=== PATIENT | male | born 1940 | race Caucasian/White ===

== ENCOUNTER 2016-03-30 10:05 | Observation (INO) | payer OTHER ==
[~2016-03-30] VITALS: Ht 180.3 cm; Wt 72.6 kg
[~2016-03-30 10:05] MED LIST: AMOX-CLAV 875-1 EACH PO; CORDARONE200 MG PO; COREG12.5 M1 PO; ELIQUIS5 M1 PO; GUAIFENESIN ER600 MG PO; LANOXIN125 MCG PO; LASIX20 M1 PO; LOSARTAN POTASS50 M1 PO; PRAVASTATIN SOD20 M2 PO; SPIRIVA18 MCG INH; TRAMADOL HCL50 M1 PO; TYLENOL325 M1 PO
--- NOTE | 2016-03-30 10:14 | NUR ---
PT TO ED WITH C/O DARK RED STOOL SINCE SATURDAY, NO BM ON SATURDAY THEN SATURDAY IT'S DARK RED AGAIN. PT ON [facility]. HX AFIB, HEART FAILURE, COPD.
--- NOTE | 2016-03-30 10:26 | NUR ---
BLOODWORK,BLUE,LAV,BANEGAS,SST,AND PINK TOP TUBES SENT TO LAB.
[2016-03-30 10:32] LABS: ABSOLUTE BASOPHIL COUNT 0.1 /CUMM (0.0-0.2); ABSOLUTE EOSINOPHIL COUNT 0.2 /CUMM (0.0-0.7); ABSOLUTE GRANULOCYTE CT 3.9 /CUMM (1.4-6.5); ABSOLUTE LYMPH COUNT 0.8 /CUMM (1.2-3.4); ABSOLUTE MONOCYTE COUNT 0.6 /CUMM (0.10-0.60); BASOPHIL % 0.9 % (0.0-2.0); EOSINOPHIL % 4.4 % (0-5); GRANULOCYTE % 69.6 % (42.2-75.2); HEMATOCRIT 37.8 % (42-52); MEAN CORPUSCULAR HGB CONC 33.7 G/DL (33.0-37.0); MEAN CORPUSCULAR VOLUME 89.2 FL (80.0-94.0); MEAN PLATELET VOLUME 7.2 FL (7.4-10.4); PLATELET COUNT 235 /CUMM (130-400); RED BLOOD CELL CT 4.24 /CUMM (4.70-6.10); WHITE BLOOD CELL COUNT 5.7 /CUMM (4.8-10.8)
[2016-03-30 10:41] LABS: PT 22.7 SEC (9.4-12.5); PTT 35 SEC (25-37)
--- NOTE | 2016-03-30 10:48 | ED GI/GU/ABDOMINAL COMPLAINT ---
History of Present Illness General Chief Complaint: Abdominal Pain/Flank Pain Stated Complaint: rectal bleding Source: patient, old records Exam Limitations: no limitations Vital Signs & Intake/Output Vital Signs & Intake/Output Vital Signs Date Time Temp Pulse Resp B/P Pulse O2 O2 Flow FiO2 Ox Delivery Rate 03/30 1438 97.7 69 20 150/60 94 03/30 1015 96.1 68 20 124/63 97 Room Air Room Air Allergies Coded Allergies: NO KNOWN ALLERGIES (04/03/11) Triage Note: PT TO ED WITH C/O DARK RED STOOL SINCE SATURDAY, NO BM ON SATURDAY THEN SATURDAY IT'S DARK RED AGAIN. PT ON [facility]. Triage Nurses Notes Reviewed? yes HPI: Patient is a 75-year-old male presents complaining of bright red blood per rectum. Patient reports he had 1 episode on Saturday, no bowel movement Saturday, then on patient had 4 episodes of bright red blood per rectum. Patient reports that the first episode yesterday had stool mixed in then 3 episodes appeared to be bright red blood per rectum. No bowel movement today. Pain is 0 out of 10. Patient takes Eliquis twice a day for atrial fibrillation. Patient denies abdominal pain, chest pain, dyspnea, vomiting, melena. (GURINDER XAVIER,BEAU) Reconcile Medications Acetaminophen (Tylenol) 325 MG TABLET 650 MG PO Q8P PRN PAIN SCALE 1-3 (MILD) Amiodarone (Cordarone) 200 MG TABLET 200 MG PO DAILY anti-arrythmic Apixaban (Eliquis) 5 MG TABLET 5 MG PO BID anti-coagulation Budesonide/Formoterol Fumarate (Symbicort 80-4.5 Mcg Inhaler) 80 MCG-4.5 MCG/ ACTUATION HFA.AER.AD 2 PUF INH BID SOB Carvedilol (Coreg) 12.5 MG TABLET 12.5 MG PO BID hypertension Digoxin (Lanoxin) 125 MCG TABLET 0.125 MG PO EVERY OTHER DAY rate control Furosemide (Lasix) 20 MG TABLET 2 TAB PO SEE ADMIN CRITERIA CHF Take 20 lasix (1 tab) for 4 days Start alternating 2 tabs of 20 mg lasix and 1 tab of 20 mg lasix Guaifenesin (Mucinex) 600 MG TAB.ER.12H 1 TAB PO BID cough (Reported) Losartan Potassium 50 MG TABLET 50 MG PO DAILY hypertension Pravastatin Sodium 20 MG TABLET 20 MG PO SEE ADMIN CRITERIA Hyperlipidemia take one tab every other day Tiotropium [place] (Spiriva) 18 MCG CAP.W.DEV 1 PUF INH DAILY COPD (ELIAN WHITNEY DO) Past History Travel History Traveled to [place] past 21 day No Medical History Any Pertinent Medical History? 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 FATHER (cad). Hx Contributory? No (BEAU MARKHAM) Review of Systems Review of Systems Constitutional: Denies: chills, fever. EENTM: Reports: no symptoms. Respiratory: Denies: cough, short of breath. Cardiovascular: Denies: chest pain. GI: Reports: see HPI. Denies: abdominal pain. Genitourinary: Reports: no symptoms. Musculoskeletal: Reports: no symptoms. Skin: Reports: no symptoms. Neurological/Psychological: Reports: no symptoms. Hematologic/Endocrine: Reports: see HPI, bleeding. Immunologic/Allergic: Reports: no symptoms. (BEAU MARKHAM) Physical Exam Physical Exam General Appearance: well developed/nourished, alert, awake Head: atraumatic, normal appearance Eyes: Bilateral: normal appearance, PERRL, EOMI. Ears, Nose, Throat, Mouth: hearing grossly normal, moist mucous membrane Neck: normal inspection, supple, full range of motion Respiratory: normal breath sounds, chest non-tender, no respiratory distress, lungs clear Cardiovascular: regular rate/rhythm, murmur Peripheral Pulses: 2+ radial (L) Gastrointestinal: normal bowel sounds, soft, non-tender Rectal: small amount of bright red blood in the rectal vault. No external hemorrhoid or palpable internal hemorrhoid. Back: normal inspection, normal range of motion Extremities: normal range of motion Neurologic/Psych: no motor/sensory deficits, awake, alert, oriented x 3, normal gait, normal mood/affect Skin: intact, normal color, warm/dry Core Measures ACS in differential dx? No Severe Sepsis Present: No Septic Shock Present: No (GURINDER XAVIER,BEAU) Progress Differential Diagnosis: upper versus lower GI bleed Plan of Care: Orders Procedure Date/time Status Heart Healthy Diet 03/31 B Active CBC WITHOUT DIFFERENTIAL 03/31 599 Active BASIC ELECTROLYTES PLUS BUN&CR 03/31 599 Active Heart Healthy Diet 03/30 D Complete CBC WITHOUT DIFFERENTIAL 03/30 1999 Active Pathway - chart 03/30 1614 Active Code Status 03/30 1614 Active TYPE & SCREEN (NOT X-MATCH) 03/30 1530 Active Vital Signs 03/30 1451 Complete Teach/Educate 03/30 1451 Active Nutritional Intake, Monitor 03/30 1451 Active Isolation 03/30 1451 Active Intake & Output 03/30 1451 Complete Patient Care Conference 03/30 1451 Active Activity/Ambulation 03/30 1451 Active Intake & Output 03/30 1337 Active Patient Data 03/[address] in observation 03/30 1228 Active Vital Signs 03/30 1228 Active Code Status 03/30 1228 Complete MISTAKE 03/30 1059 Active DIGOXIN 03/30 1020 Complete PARTIAL THROMBOPLASTIN TIME 03/30 1018 Complete PROTHROMBIN TIME 03/30 1018 Complete COMPREHENSIVE METABOLIC PANEL 03/30 1018 Complete CBC WITHOUT DIFFERENTIAL 03/30 1018 Complete XRY-CHEST XRAY, PA AND LATERAL 03/30 UNK Active Lab Add-on Test 03/30 UNK Active VTE Mechanical Prophylaxis 03/30 UNK Active EKG 03/30 UNK Active Current Medications Sig/Ashley Start time Last Medication Dose Stop Time Status Admin Pravastatin Sodium 20 MG Q48H 04/01 1700 AC (Pravachol) Furosemide 20 MG Q48 04/01 1000 CAN (Lasix) Digoxin 0.125 MG Q48H 03/31 1700 AC (Lanoxin) Amiodarone HCl 200 MG DAILY 03/31 1000 AC (Cordarone) Furosemide 40 MG Q48 03/31 1000 AC (Lasix) Tiotropium [place] 1 PUF DAILY 03/31 1000 AC (Spiriva) Sodium Chloride 1,000 ML Q20H 03/31 0000 CAN (Normal Saline 0.9%) 021958 Budesonide/ 2 PUF BID 03/30 2199 AC Formoterol Fumarate (SYMBICORT) Carvedilol 12.5 MG BID 03/30 2199 AC (Coreg) Guaifenesin 600 MG BID 03/30 2199 AC (Mucinex) Acetaminophen 650 MG Q6P PRN 03/30 1614 AC (Tylenol) Pantoprazole Sodium 40 MG DAILY 03/30 1614 AC (Protonix) Laboratory Tests 03/30/16 1020: Anion Gap 9, Estimated GFR 42 L, BUN/Creatinine Ratio 21.3, Glucose 102 H, Calcium 8.9, Total Bilirubin 0.6, AST 47, ALT 63, Alkaline Phosphatase 67, Total Protein 6.9, Albumin 3.9, Globulin 3.0, Albumin/Globulin Ratio 1.3, PT 22.7 H, INR 2.18 H, APTT 35, CBC w Diff NO MAN DIFF REQ, RBC 4.24 L, MCV 89.2, MCH 30.0, RDW 14.0, MPV 7.2 L, Gran % 69.6, Lymphocytes % 14.9 L, Monocytes % 10.2 H, Eosinophils % 4.4, Basophils % 0.9, Absolute Granulocytes 3.9, Absolute Lymphocytes 0.8 L, Absolute Monocytes 0.6, Absolute Eosinophils 0.2, Absolute Basophils 0.1, PUBS MCHC 33.7, Digoxin 0.7 L 1140: Discussed with and seen by Dr. Whitney. Discussed with Dr Smith: Recommends placing patient in observation for serial CBCs and monitoring for any further or worsening bleeding. 1155: Results discussed with the patient and his . Patient resting comfortably. No change in clinical status. (BEAU MARKHAM) Initial ED EKG: none (BEAU MARKHAM) Departure Departure Time of Disposition: 1201 Disposition: STILL A PATIENT Condition: Stable Clinical Impression Primary Impression: Lower GI bleed Referrals: LAZARA BENAVIDEZ MD (PCP/Family) Departure Forms: Customer Survey General Discharge Information Observation Note Spoke With: LAZARA BENAVIDEZ MD Physician Advisor Notified: CONSTANZA SONI,LEILA Reina (do) Place Patient In: Non-ED OBS Care Area Rationale for Observation: My rational for observation is as follows: Bright red blood per rectum and patient is on Eliquis, making patient at high risk for further bleeding or worsening bleeding. Serial CBC, GI consultation, monitor for further or worsening bleeding. (GURINDER XAVIER,BEAU) Departure Prescriptions: Current Visit Scripts Furosemide (Lasix) 2 TAB PO SEE ADMIN CRITERIA 30 Days Take 20 lasix (1 tab) for 4 days Start alternating 2 tabs of 20 mg lasix and 1 tab of 20 mg lasix Budesonide/Formoterol Fumarate (Symbicort 80-4.5 Mcg Inhaler) 2 PUF INH BID #10.2 GM PA/BABY STROLLER RENTAL CLERK Co-Sign Statement Statement: ED Attending supervision documentation- [X] I saw and evaluated the patient. I have also reviewed all the pertinent lab results and diagnostic results. I agree with the findings and the plan of care as documented in the PA's/BABY STROLLER RENTAL CLERK's documentation. [] I have reviewed the ED Record and agree with the PA's/BABY STROLLER RENTAL CLERK's documentation. [] Additions or exceptions (if any) to the PAs/BABY STROLLER RENTAL CLERK's note and plan are summarized below: [] (ELIAN WHITNEY DO)
--- NOTE | 2016-03-30 11:45 | NUR ---
REPORT RECEIVED AND CARE ASSUMED. PT RESTING COMFORTABLY AT THIS TIME. DENIES ANY COMPLAINTS. AT BEDSIDE. AWAITING LAB RESULTS. PT IS A/O X 3. VSS. NO ACUTE DISTRESS NOTED. WILL CONTINUE TO MONITOR.
--- NOTE | 2016-03-30 12:15 | NUR ---
MORENITA FAIRCHILD AT BEDSIDE.
--- NOTE | 2016-03-30 13:17 | NUR ---
PT ADMITTED TO ROOM 234
[2016-03-30] MEDS ORDERED: SYMBICORT 80-10.2 GM INH (13:32)
[2016-03-30] MEDS ORDERED: LASIX20 M1 PO (13:32)
[2016-03-30] MEDS ORDERED: MUCINEX600 M1 PO (13:33)
--- NOTE | 2016-03-30 13:34 | NUR ---
REPORT GIVEN TO BRYAN ROPER ON 2N. PT TO BE TRANSFERRED TO ROOM 234.
--- NOTE | 2016-03-30 13:50 | NUR ---
20G PLACED IN LEFT WRIST. FLUSHED PER PROTOCOL. NO REDNESS, SWELLING, HEAT, OR PAIN AT SITE. PT. TOLERATED PROCEDURE WELL. DISTRIBUTION CALLED FOR TRANSPORT.
--- NOTE | 2016-03-30 13:58 | History & Physical ---
TRISTAN SONI,[facility] 03/30/16 3897: General Information and HPI MD Statement: I have seen and personally examined COLE ABBASI and documented this H&P. The patient is a 75 year old M who presented with a patient stated chief complaint of bright red blod per rectum. Source of Information: patient Exam Limitations: no limitations History of Present Illness: This is a 75-year-old very pleasant gentleman with a past medical history of a/ fib on anticoagulation (apixaban), status post pacemaker placement, recent ablation (2016), HTN, and carotid artery stenosis, remote history of ulcers (40 years ago?), presents to [place] ED for evaluation of bright red blood per rectum. Patient reports that on Saturday, he had one episode of BRBPR after a bowel movement. Patient did not have any bowel movement the following day and did not notice any bleeding. However on night, he experienced 3 episodes of BRPR which were followed defacation, he describes his BM on that day to be more like diarrhea. Patient reports also noticing some small blood clots during the episodes. Patient denies any abdominal or rectal pain during these episodes. Patient admits to a chronic history of constipation which he takes senna for relief. He does deny any history of hemorrhoids. Does not endorse any vomiting, hematemesis, nausea,denies history of hemorrhoids. Patient reports that his last colonoscopy was in 2004 and he states that there was no remarkable findings. Review of system is unremarkable for fever, chills, chest pain, palpitation, shortness of breath dizziness, or dysuria. Allergies/Medications Allergies: Coded Allergies: NO KNOWN ALLERGIES (04/03/11) Home Med list Acetaminophen (Tylenol) 325 MG TABLET 650 MG PO Q8P PRN PAIN SCALE 1-3 (MILD) Amiodarone (Cordarone) 200 MG TABLET 200 MG PO DAILY anti-arrythmic Apixaban (Eliquis) 5 MG TABLET 5 MG PO BID anti-coagulation Budesonide/Formoterol Fumarate (Symbicort 80-4.5 Mcg Inhaler) 80 MCG-4.5 MCG/ ACTUATION HFA.AER.AD 2 PUF INH BID SOB Carvedilol (Coreg) 12.5 MG TABLET 12.5 MG PO BID hypertension Digoxin (Lanoxin) 125 MCG TABLET 0.125 MG PO EVERY OTHER DAY rate control Furosemide (Lasix) 20 MG TABLET 2 TAB PO SEE ADMIN CRITERIA CHF Take 20 lasix (1 tab) for 4 days Start alternating 2 tabs of 20 mg lasix and 1 tab of 20 mg lasix Guaifenesin (Mucinex) 600 MG TAB.ER.12H 1 TAB PO BID cough (Reported) Losartan Potassium 50 MG TABLET 50 MG PO DAILY hypertension Pravastatin Sodium 20 MG TABLET 20 MG PO SEE ADMIN CRITERIA Hyperlipidemia take one tab every other day Tiotropium [place] (Spiriva) 18 MCG CAP.W.DEV 1 PUF INH DAILY COPD Past History Travel History Traveled to [place] past 21 day No Medical History Neurological: NONE EENT: NONE Cardiovascular: AFIB, DC, CARDIAC ABLATION '16 Respiratory: COPD, emphysema Gastrointestinal: ULCERS AAA Hepatic: NONE Renal: NONE Musculoskeletal: BACK PAIN, CHRONIC Psychiatric: NONE Endocrine: NONE Blood Disorders: anemia Cancer(s): NONE 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 FATHER (cad). Psychosocial History ETOH Use: denies use Illicit Drug Use: denies illicit drug use Functional Ability ADLs Independent: dressing, eating, toileting, bathing. Ambulation: independent IADLs Independent: shopping, housework, finances, food prep, telephone, transportation , medication admin. Review of Systems Review of Systems Constitutional: Denies: chills, diaphoresis, fever. EENTM: Denies: blurred vision, double vision, visual changes. Cardiovascular: Denies: chest pain, edema, orthopena, palpitations. Respiratory: Denies: hemoptysis, orthopnea, short of breath. GI: Reports: diarrhea, bloody stool, changes in stool. Denies: bloating, constipation, distention, vomiting. Genitourinary: Denies: dysuria, frequency, hematuria. Musculoskeletal: Denies: joint pain, joint swelling, muscle pain. Skin: Denies: dryness, erythema, jaundice. Neurological/Psychological: Denies: confusion, depressed, numbness, paresthesia. Hematologic/Endocrine: Reports: bleeding. Denies: bruising, polyuria, polydipsia. Immunologic/Allergic: Reports: no symptoms. All Other Systems: Reviewed and Negative Exam & Diagnostic Data Last 24 Hrs of Vital Signs/I&O Vital Signs Date Time Temp Pulse Resp B/P Pulse O2 O2 Flow FiO2 Ox Delivery Rate 03/30 1438 97.7 69 20 150/60 94 03/30 1015 96.1 68 20 124/63 97 Room Air Room Air Intake & Output 03/30 1600 03/30 0800 03/30 0000 Intake Total Output Total Balance Patient 72.575 kg Weight Physical Exam General Appearance Alert, Oriented X3, Cooperative Skin No Rashes, No Breakdown HEENT Atraumatic, EOMI, Mucous Membr. moist/pink Neck Supple, No JVD Lymphatic Cervical nl Cardiovascular Regular Rate, Normal S1, Normal S2 Lungs mild wheezing bilaterally Abdomen Normal Bowel Sounds, Soft, No Tenderness Neurological Normal Gait, Normal Speech, Strength at 5/5 X4 Ext, Sensation Intact Extremities No Edema Vascular Pulses Symmetrical Rectal deferred Assessment/Plan Assessment: This is a 75-year-old gentleman with a history of constipation, whose last colonoscopy was 10 years ago and who is on apixaban, presents with episodes of painless bright red blood per rectum. Assesment and Plan #Bright right blood per rectum Patient presenting with painless BRBPR preceded by defecation. Presentation is most likely lower GI bleeding with possible etiology of unknown rectal condition in the setting of history of constipation which could indicate possible hemorrhoidal bleeding. It is also possible that patient has diverticular bleeding in the setting of active anticoagulation use. AVM can also be a possible cause. 80% of lower GI bleed is transient and patient hasn't had any episodes today. The other possible etiology but less likely include upper GI lead with rapid transit. Pt will be benefit from a colonoscopy (outpatient, if no more bleed in this admission) as he has not had one since 2004. Plan Admit to general medicine floor for observation Will stop apixaban for today Will trend CBC at 8 PM, to maintain a goal of above 8. Monitor for any new acute rectal bleed. Will type and cross patient Keep patient on regular diet as recommended by GI (appreciated). Protonix for PPI #History of CHF Will continue digoxin and furosemide #History of A. fib Will hold off apixaban for now in the setting of reported lower GI bleed. Will defer to GI and cardio on when to restart. Continue amiodarone. As Ranked By This Provider Problem List: 1. Lower GI bleed Core Measures/Miscellaneous Acute Coronary Syndrome ACS Diagnosis: No Cerebrovascular Accident CVA/TIA Diagnosis: No Congestive Heart Failure CHF Diagnosis: No Venous Thromboembolism VTE Risk Factors: Age > 40 VTE Prophylaxis Ordered Inpt: Mechanical (ALPS/TEDS) No Mech VTE prophylaxis d/t: No contraindications No VTE Pharm Prophylaxis d/t: Active bleeding VTE Diagnosis: No VTE Type: NONE VTE Confirmed by (Test): NONE Severe Sepsis Severe Sepsis Present: No Septic Shock Septic Shock Present: No Miscellaneous Documentation Attending Case Discussed With: LAZARA BENAVIDEZ MD Primary Care Physician: LAZARA BENAVIDEZ MD 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 Patient reports that on Saturday, he had one episode of BRBPR after a bowel movement 25-year-old man with past medical history of A. 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 Patient reports having one bloody bowel movement on Saturday and 3 episodes of bloody diarrhea with clots on Saturday. Patient denies any episodes of nausea, vomiting, abdominal pain, hematuria, dizziness, chest pain, headaches. Patient does report of constipation, chronic cough and exertional dyspnea. Rectal Examination in ED showed streaks of blood in rectum. Vital signs on admission were stable, Orthostatics were negative Skin No Rashes, No Breakdown, No Significant Lesion HEENT Atraumatic, PERRLA, EOMI Neck Supple, No JVD, No thryomegaly Lymphatic Cervical nl Cardiovascular Regular Rate, Normal S1, Normal S2 Lungs mild expiratory wheezing, basal crackles on the left flank Abdomen Normal Bowel Sounds, Soft, No Tenderness, No Hepatospenomegaly, No Masses Neurological Normal Gait, Normal Speech, Strength at 5/5 X4 Ext, Sensation Intact Extremities No Clubbing, No Cyanosis, No Edema,Normal Pulses Notable labs, hemoglobin 12.7, at baseline, creatinine 1.5, baseline, dig level 0.6 Last colonoscopy was done in 2004 Assessment and plan #Lower GI bleed -The patient on observation -Possibly due to eliquis with diverticular problems versus hemorrhoid -stop eliquis for now -2 IV access -Type and crossmatch -Watch for active bleeding -GI is consulted already -Check CBC at 8 PM and 6 AM -IV PPI #History of A. fib -Continue on amiodarone and digoxin(every other day )and carvedilol -Get baseline EKG #CHF -Lasix 40 mg and 20 mg alternating #COPD, chronic cough, abnormal chest physical exam -Get chest x-ray (previous CXR 6 months ago showed consolidation in left lower lobe ) -Continue TRC -Continue Mucinex DVT prophylaxis Alps and eliquis , Tylenol for pain, full code , heart healthy diet EREMA SONI,[facility] 03/30/16 1902: Attending MD Review Statement Attending Statement Attending MD Statement: examined this patient, discuss w/resident/PA/SOIL CONSERVATIONIST, agreed w/resident/PA/SOIL CONSERVATIONIST, discussed with family, reviewed EMR data (avail) Attending Assessment/Plan: 75-year-old male with history of atrial fibrillation on apixaban, pacemaker placement, hypertension, carotid stenosis presenting with a few episodes of BRBPR. His last colonoscopy in 2004. Patient has been admitted for observation and in the event of active bleed he will need an inpatient colonoscopy if not we will discharge him off for 24 hours in arrange for outpatient colonoscopy. In the meantime he will hold apixaban and informed cardiology. Plan CBC every 12 hours Inform GI of active bleed Hold apixaban Observe for 24 hours Inform cardiology about holding apixaban May resume all other home meds Keep patient nothing by mouth after midnight Alps for DVT prophylaxis
[2016-03-30 14:38] VITALS: BP 150/60
--- NOTE | 2016-03-30 15:12 | NUR ---
14:30- PT ARRIVED TO FLOOR VIA WHEELCHAIR FROM ER. REPORT REC'D FROM JOCELYNN GODWIN RN. A/V/OX3. INDEPENDENT. HERE FOR OBSERVATION DUE TO DARK RED STOOL AT HOME. ORIENTED TO ROOM AND CALL LIGHT.
--- NOTE | 2016-03-30 15:59 | Cons- Gastroenterology ---
General Information and HPI Consulting Request Date of Consult: 03/30/16 Requested By: LAZARA BENAVIDEZ MD Reason for Consult: Rectal bleeding. Diarrhea. Source of Information: patient, old records Exam Limitations: no limitations History of Present Illness: Mr. Mota is a 75-year-old male on anticoagulation for atrial fibrillation who presented to [facility] today with complaints of bright blood per rectum. The patient notes that on Saturday he noted a scant amount of blood with his bowel movement which was otherwise normal in appearance. He did well on Saturday and then on night he had about 3 more episodes of blood which followed bowel movements which he described as loose. The bleeding was not associated with any significant abdominal pain and he has been without any abdominal pain with eating. He does have some constipation for which she uses senna as needed. He denies any rectal itching or rectal pain. He also denies ever having similar bleeding like this in the past. In the emergency room the patient was hemodynamically stable and his hemoglobin was 12 which was close to his baseline. He was admitted to the medical service for observation and has not had any further rectal bleeding or any bowel movements since arrival to the emergency room. Allergies/Medications Allergies: Coded Allergies: NO KNOWN ALLERGIES (04/03/11) Home Med List: Acetaminophen (Tylenol) 325 MG TABLET 650 MG PO Q8P PRN PAIN SCALE 1-3 (MILD) Amiodarone (Cordarone) 200 MG TABLET 200 MG PO DAILY anti-arrythmic Apixaban (Eliquis) 5 MG TABLET 5 MG PO BID anti-coagulation Budesonide/Formoterol Fumarate (Symbicort 80-4.5 Mcg Inhaler) 80 MCG-4.5 MCG/ ACTUATION HFA.AER.AD 2 PUF INH BID SOB Carvedilol (Coreg) 12.5 MG TABLET 12.5 MG PO BID hypertension Digoxin (Lanoxin) 125 MCG TABLET 0.125 MG PO EVERY OTHER DAY rate control Furosemide (Lasix) 20 MG TABLET 2 TAB PO SEE ADMIN CRITERIA CHF Take 20 lasix (1 tab) for 4 days Start alternating 2 tabs of 20 mg lasix and 1 tab of 20 mg lasix Guaifenesin (Mucinex) 600 MG TAB.ER.12H 1 TAB PO BID cough (Reported) Losartan Potassium 50 MG TABLET 50 MG PO DAILY hypertension Pravastatin Sodium 20 MG TABLET 20 MG PO SEE ADMIN CRITERIA Hyperlipidemia take one tab every other day Tiotropium Presto (Spiriva) 18 MCG CAP.W.DEV 1 PUF INH DAILY COPD Current Medications: Current Medications Sig/Ashley Start time Last Medication Dose Route Stop Time Status Admin Pravastatin Sodium 20 MG Q48H 04/01 1700 DCD PO Past History Travel History Traveled to [place] past 21 day No Medical History Blood Transfusion Hx: No Neurological: NONE EENT: NONE Cardiovascular: AFIB, [place], CARDIAC ABLATION Respiratory: COPD, emphysema Gastrointestinal: ULCERS AAA Hepatic: NONE Renal: NONE Musculoskeletal: BACK PAIN, CHRONIC Psychiatric: NONE Endocrine: NONE Blood Disorders: anemia Cancer(s): NONE 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 FATHER (cad). Psychosocial History Smoking Status: Former Smoker ETOH Use: denies use Illicit Drug Use: denies illicit drug use Functional Ability ADLs Independent: dressing, eating, toileting, bathing. Ambulation: independent IADLs Independent: shopping, housework, finances, food prep, telephone, transportation , medication admin. Review of Systems Review of Systems Constitutional: Denies: no symptoms. EENTM: Denies: no symptoms. Cardiovascular: Denies: no symptoms. Respiratory: Denies: no symptoms. GI: Reports: see HPI. Genitourinary: Denies: no symptoms. Musculoskeletal: Denies: no symptoms. Skin: Denies: no symptoms. Neurological/Psychological: Denies: no symptoms. Hematologic/Endocrine: Denies: no symptoms. Immunologic/Allergic: Denies: no symptoms. All Other Systems: Reviewed and Negative Exam & Diagnostic Data Vital Signs and I&O Vital Signs Date Time Temp Pulse Resp B/P Pulse O2 O2 Flow FiO2 Ox Delivery Rate 03/30 1438 97.7 69 20 150/60 94 03/30 1015 96.1 68 20 124/63 97 Room Air Room Air Intake & Output 03/30 1600 03/30 0400 03/29 1600 03/29 0400 03/28 1600 03/28 0400 Intake Total Output Total Balance Patient 160 lb Weight Physical Exam General Appearance: well developed/nourished, no apparent distress, alert, comfortable Head: atraumatic, normal appearance Eyes: Bilateral: normal appearance. Ears, Nose, Throat: normal pharynx, normal ENT inspection Neck: normal inspection, supple, full range of motion Respiratory: normal breath sounds, chest non-tender, no respiratory distress Cardiovascular: irregularly irregular Gastrointestinal: normal bowel sounds, soft, non-tender, no organomegaly Rectal: deferred Back: normal inspection, normal range of motion Extremities: normal inspection, no edema Neurologic/Psych: no motor/sensory deficits, awake, alert, oriented x 3 Results Pertinent Lab Results: Laboratory Tests 03/30 1020 Chemistry Sodium (137 - 145 mmol/L) 141 Potassium (3.5 - 5.1 mmol/L) 4.7 Chloride (98 - 107 mmol/L) 103 Carbon Dioxide (22 - 30 mmol/L) 29 Anion Gap (5 - 16) 9 BUN (9 - 20 mg/dL) 34 H Creatinine (0.7 - 1.2 mg/dL) 1.6 H Estimated GFR (>60 ml/min) 42 L BUN/Creatinine Ratio (7 - 25 %) 21.3 Glucose (65 - 99 mg/dL) 102 H Calcium (8.4 - 10.2 mg/dL) 8.9 Total Bilirubin (0.2 - 1.3 mg/dL) 0.6 AST (17 - 59 U/L) 47 ALT (21 - 72 U/L) 63 Alkaline Phosphatase (< 127 U/L) 67 Total Protein (6.3 - 8.2 g/dL) 6.9 Albumin (3.5 - 5.0 g/dL) 3.9 Globulin (1.9 - 4.2 gm/dL) 3.0 Albumin/Globulin Ratio (1.1 - 2.2 %) 1.3 Coagulation PT (9.4 - 12.5 SEC) 22.7 H INR (0.90 - 1.17) 2.18 H APTT (25 - 37 SEC) 35 Hematology CBC w Diff NO MAN DIFF REQ WBC (4.8 - 10.8 /CUMM) 5.7 RBC (4.70 - 6.10 /CUMM) 4.24 L Hgb (14.0 - 18.0 G/DL) 12.7 L Hct (42 - 52 %) 37.8 L MCV (80.0 - 94.0 FL) 89.2 MCH (27.0 - 31.0 PG) 30.0 RDW (11.5 - 14.5 %) 14.0 Plt Count (130 - 400 /CUMM) 235 MPV (7.4 - 10.4 FL) 7.2 L Gran % (42.2 - 75.2 %) 69.6 Lymphocytes % (20.5 - 51.1 %) 14.9 L Monocytes % (1.7 - 9.3 %) 10.2 H Eosinophils % (0 - 5 %) 4.4 Basophils % (0.0 - 2.0 %) 0.9 Absolute Granulocytes (1.4 - 6.5 /CUMM) 3.9 Absolute Lymphocytes (1.2 - 3.4 /CUMM) 0.8 L Absolute Monocytes (0.10 - 0.60 /CUMM) 0.6 Absolute Eosinophils (0.0 - 0.7 /CUMM) 0.2 Absolute Basophils (0.0 - 0.2 /CUMM) 0.1 PUBS MCHC (33.0 - 37.0 G/DL) 33.7 Toxicology Digoxin (0.8 - 2.0 ng/mL) Pending Assessment/Plan Assessment/Recommendations: Assessment: Mr. Mota is a 75-year-old male on Eliquis for atrial fibrillation who presents with several episodes of bright blood per rectum that started on Saturday which I feel is most likely secondary to a hemorrhoidal bleed or a self limited diverticular bleed considering his lack of pain and relatively stable hemoglobin. While he should ultimately have a colonoscopy to further evaluate the etiology of the bleeding as he has not had one in over 10 years as he is currently stable and is without evidence of ongoing GI blood loss this isn't urgent. As he has not had any further bleeding since last night and his hemoglobin is stable I am hopeful that the bleeding will stop with temporary cessation of the Eliquis and he will be able to be discharged home over the weekend so that he can follow up as an outpatient for a colonoscopy. Recommendations: 1. High-fiber diet as tolerated. 2. Follow daily CBCs and transfuse as needed to keep his hemoglobin 8 or as per cardiology recommendations. 3. Maintain 2 large-bore IVs at all times. 4. Notify GI for signs of hemodynamically significant bleeding. 5. Hold Eliquis and nsaids for now. 6. If he has any diarrhea it should be sent for c. diff, o and p and culture 7. If pt remains stable without any further bleeding will likely then recommend that he be discharged home to follow up as an outpatient for a repeat colonoscopy. I will continue to follow this patient and make further recommendations based on his clinical course and results of repeat blood work. Problem List: 1. Lower GI bleed Copies To: [facility]. [facility] Consult Acknowledgment - Thank you for your consult request.
--- NOTE | 2016-03-30 18:59 | Admission Certification ---
Admission Certification Certification Statement - As attending physician, I certify that at the time of - admission, based on clinical presentation, severity of - symptoms, need for further diagnostic testing and - therapeutic interventions, and risk of adverse outcomes - without in-hospital treatment, in my clinical assessment, - this patient requires an acute hospital stay for a minimum - of two nights or longer. I have also considered psychsocial - factors such as support system, advanced age, financial - issues, cognitive issues, and failed out-patient treatments, - past re-admission history, safety of patient, and lack of - compliance as applicable. Specific rationale supporting this admission is: GI bleed
--- NOTE | 2016-03-30 19:11 | RADIOLOGY REPORT ---
EXAMINATION: XR CHEST CLINICAL INFORMATION: Abnormal chest sounds at left lung base. COMPARISON: Chest x-ray 09/04/2015. CT of chest 09/06/2015. TECHNIQUE: 2 views of the chest were obtained. FINDINGS: No acute abnormality. The lungs are clear. There is no pulmonary vascular congestion and no pleural effusion. Heart size is top normal. No change position of the pacemaker leads since prior exam. IMPRESSION: No acute abnormality of the chest.
[2016-03-30 21:45] LABS: ABSOLUTE BASOPHIL COUNT 0 /CUMM (0.0-0.2); ABSOLUTE EOSINOPHIL COUNT 0.3 /CUMM (0.0-0.7); ABSOLUTE GRANULOCYTE CT 4.4 /CUMM (1.4-6.5); ABSOLUTE LYMPH COUNT 1.2 /CUMM (1.2-3.4); ABSOLUTE MONOCYTE COUNT 0.7 /CUMM (0.10-0.60); BASOPHIL % 0.7 % (0.0-2.0); EOSINOPHIL % 3.9 % (0-5); GRANULOCYTE % 67.2 % (42.2-75.2); HEMATOCRIT 38.2 % (42-52); MEAN CORPUSCULAR HGB 29.9 PG (27.0-31.0); MEAN CORPUSCULAR HGB CONC 33.3 G/DL (33.0-37.0); MEAN CORPUSCULAR VOLUME 89.7 FL (80.0-94.0); MEAN PLATELET VOLUME 8.1 FL (7.4-10.4); PLATELET COUNT 249 /CUMM (130-400); RBC DISTRIBUTION WIDTH 14.5 % (11.5-14.5); RED BLOOD CELL CT 4.25 /CUMM (4.70-6.10); WHITE BLOOD CELL COUNT 6.5 /CUMM (4.8-10.8)
[2016-03-30 22:07] VITALS: BP 112/68
[2016-03-31 06:27] VITALS: BP 110/54
--- NOTE | 2016-03-31 07:28 | PN- Housestaff ---
TRISTAN SONI,DA 03/31/16 4725: Subjective Follow-up For: lower GI bleed Subjective: Pt was seen and examined at bedside. He is eager for discharge. He does not report any o/n episode of BRBPR or melena. No acute o/n event reported by o/n staff. Review of Systems Constitutional: Reports: no symptoms. Objective Physical Exam General Appearance: Alert, Oriented X3, Cooperative Other Physical Findings: Skin No Rashes, No Breakdown HEENT Atraumatic, EOMI, Mucous Membr. moist/pink Neck Supple, No JVD Lymphatic Cervical nl Cardiovascular Regular Rate, Normal S1, Normal S2 Lungs mild wheezing bilaterally Abdomen Normal Bowel Sounds, Soft, No Tenderness Neurological Normal Gait, Normal Speech, Strength at 5/5 X4 Ext, Sensation Intact Extremities No Edema Vascular Pulses Symmetrical Rectal deferred Assessment/Plan Assessment: Assessment: This is a 75-year-old gentleman with a history of constipation, whose last colonoscopy was 10 years ago and who is on apixaban, presents with episodes of painless bright red blood per rectum. Assesment and Plan #Bright right blood per rectum Patient presenting with painless BRBPR preceded by defecation. Presentation is most likely lower GI bleeding with possible etiology of unknown rectal condition in the setting of history of constipation which could indicate possible hemorrhoidal bleeding. It is also possible that patient has diverticular bleeding in the setting of active anticoagulation use. AVM can also be a possible cause. 80% of lower GI bleed is transient and patient hasn't had any episodes today. The other possible etiology but less likely include upper GI lead with rapid transit. Pt will be benefit from a colonoscopy (outpatient, if no more bleed in this admission) as he has not had one since 2004. Plan Pt is stable with no reported episodes of BRBPR or melena, H&H and hemodynamically stable. Pt will be discharged today. #History of CHF Will continue digoxin and furosemide #History of A. fib Will hold off apixaban for now in the setting of reported lower GI bleed. Will defer to GI and cardio on when to restart. Continue amiodarone. Problem List: 1. Lower GI bleed Pain Ratin Pain Location: none Pain Goal: Pain 4 or less Pain Plan: per pain pathway Tomorrow's Labs & Rationales: none-discharge CARLIE TONY MD 03/31/16 1330: Objective Last 24 Hrs of Vital Signs/I&O Vital Signs Date Time Temp Pulse Resp B/P Pulse O2 O2 Flow FiO2 Ox Delivery Rate 03/31 0914 68 122/52 03/31 0913 68 122/52 03/31 0627 97.9 70 20 110/54 96 Room Air 03/30 2207 97.8 69 20 112/68 95 Room Air 03/30 2142 112/68 03/30 1438 97.7 69 20 150/60 94 Intake & Output 03/31 1600 03/31 0800 03/31 0000 Intake Total 120 Output Total Balance 120 Intake, Oral 120 Attending MD Review Statement Attending Statement Attending MD Statement: examined this patient, discuss w/resident/PA/TAILINGS WORKER, agreed w/resident/PA/TAILINGS WORKER, discussed with family, reviewed EMR data (avail), discussed with nursing, reviewed images, amended to note Attending Assessment/Plan: Mr. Mota has no complaints today. He has been observed and has had no further episodes of rectal bleeding. His vital signs and exam are benign. He is stable to be discharged. Follow-up with GI has been arranged. His CMR has been reviewed and signed. He will restart his anticoagulant on April 01. He is to arrange follow-up with Dr. Cormier.
[2016-03-31 08:23] LABS: ABSOLUTE BASOPHIL COUNT 0.1 /CUMM (0.0-0.2); ABSOLUTE EOSINOPHIL COUNT 0.3 /CUMM (0.0-0.7); ABSOLUTE GRANULOCYTE CT 3.6 /CUMM (1.4-6.5); ABSOLUTE LYMPH COUNT 0.9 /CUMM (1.2-3.4); ABSOLUTE MONOCYTE COUNT 0.5 /CUMM (0.10-0.60); EOSINOPHIL % 5.1 % (0-5); GRANULOCYTE % 68.5 % (42.2-75.2); HEMATOCRIT 34.7 % (42-52); MEAN CORPUSCULAR HGB 30.2 PG (27.0-31.0); MEAN CORPUSCULAR VOLUME 88.7 FL (80.0-94.0); MEAN PLATELET VOLUME 8.1 FL (7.4-10.4); PLATELET COUNT 204 /CUMM (130-400); RBC DISTRIBUTION WIDTH 14.5 % (11.5-14.5); RED BLOOD CELL CT 3.92 /CUMM (4.70-6.10); WHITE BLOOD CELL COUNT 5.3 /CUMM (4.8-10.8)
[2016-03-31 09:14] VITALS: BP 122/52
--- NOTE | 2016-03-31 09:36 | Patient Discharge Instructions ---
Discharge Instructions General Discharge Information You were seen/treated for: rectal bleeding Special Instructions: Please restart taking your Elliquis (blood thinner)tomorrow (04/01/16) Please follow up with your primary care physician in 1 week Please follow up with Dr Smith (Stomach doctor) within 1 week for evaluation and colonoscopy Please seek medical attention if you develop episodes of blood in your stool. Diet Continue normal diet: Yes (high fiber) Activity Full Activity/No Limits: Yes Acute Coronary Syndrome Inclusion Criteria At DC or during hospital stay patient has or had the following: ACS DIAGNOSIS No Discharge Core Measures Meds if any: Prescribed or Continued at Discharge Meds if any: NOT Prescribed or Continued at Discharge Congestive Heart Failure Inclusion Criteria At DC or during hospital stay patient has or had the following: CHF DIAGNOSIS No Discharge Core Measures Meds if any: Prescribed or Continued at Discharge Meds if any: NOT Prescribed or Continued at Discharge Cerebrovascular accident Inclusion Criteria At DC or during hospital stay patient has or had the following: CVA/TIA Diagnosis No Discharge Core Measures Meds if any: Prescribed or Continued at Discharge Meds if any: NOT Prescribed or Continued at Discharge Venous thromboembolism Inclusion Criteria VTE Diagnosis No VTE Type NONE VTE Confirmed by (Test) NONE Discharge Core Measures - Per Current guidelines, there needs to be overlap - treatment for the first 5 days of Warfarin therapy. - If discharged on Warfarin prior to 5 days of - overlap therapy, the patient will need to be - assessed for post discharge needs including - *Post discharge parental anticoagulation - *Warfarin and/or parental anticoagulation education - *Follow up date to check INR post discharge At least 5 days overlap therapy as Inpatient No Meds if any: Prescribed or Continued at Discharge Note: Overlap Therapy is Warfarin and Anticoagulant Meds if any: NOT Prescribed or Continued at Discharge
== END 2016-03-31 14:06 ==
LOC: ENRESERVDT → ENRESERVTM → ERH 10:05 → ERHI 12:28 → ENPENDDIS 12:28 → ERHI 12:28 → 2NA 14:16
PROVIDERS: Emergency Medicine; Internal Medicine; ADMIT Internal Medicine
DX: K92.2 Gastrointestinal hemorrhage, unspecified (principal); I48.91 Unspecified atrial fibrillation; Z79.01 Long term (current) use of anticoagulants; I25.2 Old myocardial infarction; I50.9 Heart failure, unspecified; I10 Essential (primary) hypertension; Z95.0 Presence of cardiac pacemaker; K59.00 Constipation, unspecified; J44.9 Chronic obstructive pulmonary disease, unspecified
CPT/HCPCS: 6030; 82436; 93005; 93010; G0378; J3490

== ENCOUNTER 2016-07-26 10:45 | Emergency (ER) | payer OTHER ==
[~2016-07-26] VITALS: Ht 180.3 cm; Wt 72.6 kg
[~2016-07-26 10:45] MED LIST changes: +MUCINEX600 M1 PO; +SYMBICORT 80-10.2 GM INH
[2016-07-26 11:10] LABS: ABSOLUTE BASOPHIL COUNT 0 /CUMM (0.0-0.2); ABSOLUTE EOSINOPHIL COUNT 0 /CUMM (0.0-0.7); ABSOLUTE GRANULOCYTE CT 4.4 /CUMM (1.4-6.5); ABSOLUTE LYMPH COUNT 0.4 /CUMM (1.2-3.4); ABSOLUTE MONOCYTE COUNT 0.5 /CUMM (0.10-0.60); BASOPHIL % 0.1 % (0.0-2.0); EOSINOPHIL % 0.1 % (0-5); HEMATOCRIT 36.3 % (42-52); MEAN CORPUSCULAR HGB 28.7 PG (27.0-31.0); MEAN CORPUSCULAR HGB CONC 33.4 G/DL (33.0-37.0); MEAN PLATELET VOLUME 7.6 FL (7.4-10.4); PLATELET COUNT 149 /CUMM (130-400); RBC DISTRIBUTION WIDTH 16.4 % (11.5-14.5); RED BLOOD CELL CT 4.22 /CUMM (4.70-6.10); WHITE BLOOD CELL COUNT 5.3 /CUMM (4.8-10.8)
--- NOTE | 2016-07-26 11:12 | ED HEAD/FACIAL INJ COMPLAINT ---
See Addendum History of Present Illness General Chief Complaint: Fall Stated Complaint: FALL HIT HEAD Source: patient Exam Limitations: no limitations Vital Signs & Intake/Output Vital Signs & Intake/Output Vital Signs Date Time Temp Pulse Resp B/P B/P Pulse O2 O2 Flow FiO2 Mean Ox Delivery Rate 07/26 1545 98.0 71 16 112/58 98 Room Air 07/26 1431 98.2 69 16 97/54 99 Room Air 07/26 1144 71 16 108/52 98 Room Air 07/26 1111 93 Nasal 2.0L Cannula 07/26 1107 70 15 98/42 89 Room Air Room Air 07/26 1047 96.2 70 16 78/37 92 Room Air Allergies Coded Allergies: NO KNOWN ALLERGIES (04/03/11) Reconcile Medications Amiodarone HCl 200 MG TABLET 1 TAB PO DAILY HEART (Reported) Apixaban (Eliquis) 5 MG TABLET 5 MG PO BID anti-coagulation Budesonide/Formoterol Fumarate (Symbicort 80-4.5 Mcg Inhaler) 80 MCG-4.5 MCG/ ACTUATION HFA.AER.AD 2 PUF INH BID SOB Carvedilol (Coreg) 12.5 MG TABLET 12.5 MG PO BID hypertension Digoxin 125 MCG TABLET 1 TAB PO MoWeFr HEART (Reported) Furosemide 40 MG TABLET 1 TAB PO DAILY WATER PILL (Reported) Losartan Potassium 50 MG TABLET 50 MG PO DAILY hypertension Magnesium Oxide 400 MG TABLET 1 TAB PO DAILY SUPPLEMENT (Reported) Pravastatin Sodium (Pravachol) 20 MG TABLET 1 TAB PO TuThSa CHOLESTEROL ( Reported) Tiotropium [place] (Spiriva) 18 MCG CAP.W.DEV 1 PUF INH DAILY COPD Triage Note: 76 Y/O MALE C/O FALL THIS AM; STATES HE WAS IN HOUSE AND "MY LEGS JUST GAVE OUT". STRUCK HEAD ON DINING ROOM WALL. PT UNSURE IF THERE WAS LOC. TAKES ELIQUIS DAILY. PT HOLDING ICE TO FOREHEAD WITH LARGE HEMATOMA NOTED. DRIED BLOOD NOTED TO BRIDGE OF NOSE. B/P /37 IN TRIAGE. Triage Nurses Notes Reviewed? yes Onset: Just prior to arrival Severity: severe Location: FOREHEAD Method of Injury: fall Loss of Consciousness: unsure HPI: Patient presents for evaluation of injury sustained status post fall just prior to arrival. Patient states that while at home his legs gave out causing him to fall into the corner of a wall. He states he "went down" and then woke up on the floor. He is not sure if he lost consciousness. After awakening on the floor he states he got up and sat in a chair. Since then he has had right forehead swelling and pain with bleeding from a small cut. In addition he states his legs "feel like rubber". He denies headache, visual changes, vomiting, neck pain or back pain. He takes Eliquis for history of atrial fibrillation. Past History Travel History Traveled to [place] past 21 day No Medical History Any Pertinent Medical History? 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 FATHER (cad). Hx Contributory? No Review of Systems Review of Systems Constitutional: Reports: no symptoms. EENTM: Reports: no symptoms. Respiratory: Reports: no symptoms. Cardiovascular: Reports: no symptoms. GI: Reports: no symptoms. Genitourinary: Reports: no symptoms. Musculoskeletal: Reports: see HPI. Skin: Reports: no symptoms. Neurological/Psychological: Reports: no symptoms. Hematologic/Endocrine: Reports: no symptoms. Immunologic/Allergic: Reports: no symptoms. All Other Systems: Reviewed and Negative Physical Exam Physical Exam General Appearance: SEE BELOW Cranial Nerves: SEE BELOW Comments: Gen.: Well-nourished, well-developed, no acute respiratory distress. Head: Normocephalic, right forehead contusion with abrasion and slight bleeding. Eyes: Normal inspection bilaterally, ady, EOMI Ears: Normal inspection bilaterally, TMs normal bilaterally, no morales sign Nose: Small abrasion of the nasal bridge, nontender, no epistaxis Throat/mouth : Moist mucosa Neck: Supple, full range of motion, no goiter, nontender Heart: Regular rate and rhythm, no murmurs rubs or gallops Lungs: Clear to auscultation bilaterally with normal air entry Chest: Nontender Back: Normal range of motion, nontender Abdomen: Soft, nontender, nondistended, normal bowel sounds Pelvis: Stable and nontender Extremities: Normal range of motion grossly, no tenderness, no cyanosis clubbing or edema, extremities reveal normal muscle strength and deep tendon reflexes. Neurologic: Cranial nerves 2 through 12 intact, speech is clear Skin: warm and dry and without ecchymoses or soft tissue swelling or erythema Psychiatric: Calm, cooperative, no apparent delusions or hallucinations Progress Differential Diagnosis: facial fracture, orbit fracture, skull fracture Plan of Care: Orders Procedure Date/time Status TROPONIN LEVEL 07/26 1537 Complete TROPONIN LEVEL 07/26 1101 Complete COMPREHENSIVE METABOLIC PANEL 07/26 1101 Complete CBC WITHOUT DIFFERENTIAL 07/26 1101 Complete EKG 07/26 1055 Active PARTIAL THROMBOPLASTIN TIME 07/26 1049 Complete PROTHROMBIN TIME 07/26 1049 Complete Laboratory Tests 07/26/16 1543: Troponin I 0.07 07/26/16 1102: Anion Gap 11, Estimated GFR 35 L, BUN/Creatinine Ratio 16.3, Glucose 100 H, Calcium 7.8 L, Total Bilirubin 0.7, AST 91 H, ALT 104 H, Alkaline Phosphatase 59, Troponin I 0.11 *H, Total Protein 6.1 L, Albumin 3.3 L, Globulin 2.8, Albumin/Globulin Ratio 1.2, PT 30.1 H, INR 2.90 H, APTT 35, CBC w Diff NO MAN DIFF REQ, RBC 4.22 L, MCV 86.0, MCH 28.7, RDW 16.4 H, MPV 7.6, Gran % 83.5 H, Lymphocytes % 7.2 L, Monocytes % 9.1, Eosinophils % 0.1, Basophils % 0.1, Absolute Granulocytes 4.4, Absolute Lymphocytes 0.4 L, Absolute Monocytes 0.5, Absolute Eosinophils 0, Absolute Basophils 0, PUBS MCHC 33.4 Comments: Patient consented for transport to [facility] for CAT scan. 07/26/2016 3:45:39 PM I have updated Carmine on his CAT scan report. Large frontal hematoma but no acute bony abnormalities. Cervical spine shows degenerative changes. Patient's elevated troponin is of unclear significance. He did have a low blood pressure during his emergency department stay at [facility] and here requiring IV fluids. His blood pressures currently normal. He denies ever having chest pain or heart palpitations. Repeat troponin is pending and I will contact Dr. Alexandre regarding this and any recommended adjustments for his blood pressure medication. 07/26/2016 6:23:45 PM patient's case discussed with Dr Lee who feels the patient is stable for discharge. Patient describes a fall secondary to leg weakness. His medical evaluation is unremarkable. I do not feel his elevated troponin reflects an acute coronary syndrome or myocardial infarction. Chest pain that any point that he can recall and he denies heart palpitations as well. Fortunately his traumatic injuries are relatively minor. I feel he is stable for discharge. Departure Departure Disposition: HOME OR SELF CARE Condition: Stable Clinical Impression Primary Impression: Forehead contusion Qualifiers: Encounter type: initial encounter Qualified Code: S00.83XA - Contusion of other part of head, initial encounter Secondary Impressions: Neck strain Qualifiers: Encounter type: initial encounter Qualified Code: S16.1XXA - Strain of muscle, fascia and tendon at neck level, initial encounter Referrals: LAZARA BENAVIDEZ MD (PCP/Family) Additional Instructions: Rest, no exertion or heavy lifting. Cool compresses to your right forehead to reduce swelling. Follow-up with your primary care physician within the next 24- 48 hours for reevaluation. Return if any concerns or sudden worsening. Please note that there might be incidental findings in your evaluation that are unrelated to the current emergency department visit. Please notify your primary care doctor about this emergency department visit in order to obtain and review all of the testing performed so that these incidental findings can be monitored as needed. If you had an x-ray performed, please understand that some fractures may not be seen on the initial set of x-rays. If your symptoms persist you might need a repeat set of x-rays to check for such a fracture. If you had a laceration evaluated, please understand that foreign bodies such as glass or wood may not be visible to the naked eye or on plain x-rays. If the wound becomes red, swollen, increasingly more painful or if there is any drainage from the wound, please have it reevaluated by a physician for the possibility of a retained foreign body. Thank you for choosing the [facility] Emergency Department for your care. It was a pleasure to serve you today. Pacheco Celeste M.D. [facility] Departure Forms: Customer Survey General Discharge Information
[2016-07-26] MEDS ORDERED: CARVEDILOL12.5 M1 PO (11:14)
[2016-07-26] MEDS ORDERED: DIGOXIN125 MCG PO (11:16)
[2016-07-26] MEDS ORDERED: FUROSEMIDE40 M1 PO (11:17)
[2016-07-26] MEDS ORDERED: PRAVACHOL20 M2 PO (11:17)
[2016-07-26] MEDS ORDERED: MAGNESIUM OXID400 M1 PO (11:18)
[2016-07-26 11:19] LABS: PT 30.1 SEC (9.4-12.5); PTT 35 SEC (25-37)
[2016-07-26] MEDS ORDERED: AMIODARONE HCL200 M1 PO (11:19)
[2016-07-26 11:57] LABS: GRANULOCYTE % 83.5 % (42.2-75.2)
[2016-07-26 18:32] VITALS: BP 130/58
== END 2016-07-26 18:49 ==
LOC: ERH 10:45
PROVIDERS: Emergency Medicine
DX: S00.83XA Contusion of other part of head, initial encounter (principal); S16.1XXA Strain of muscle, fascia and tendon at neck level, initial encounter; I48.91 Unspecified atrial fibrillation; D64.9 Anemia, unspecified; W19.XXXA Unspecified fall, initial encounter; Y93.9 Activity, unspecified; Y92.009 Unspecified place in unspecified non-institutional (private) residence as the place of occurrence of the external cause
CPT/HCPCS: 93005; 93010